=== PATIENT | male | born 1970 | race Caucasian/White ===

== ENCOUNTER 2018-06-04 10:38 | Outpatient (REF) | payer BC, SELFPAY ==
[2018-06-04 12:43] LABS: HCT 43.3 % (40.0-50.0); HGB 14.5 g/dL (13.5-17.5); Mean Corp. HGB Concentration 33.5 g/dL (32.0-36.0); Mean Corpuscular Hemoglobin 32.9 pg (27.0-33.0); Mean Corpuscular Volume 98.2 fL (80-95); Mean Platelet Volume 9.2 fL (8.0-11.0); Platelet Count 308 x1000/uL (130-400); RBC 4.41 m/cumm (4.50-6.00); RBC Distribution Width 12.9 % (11.8-14.1)
[2018-06-04 13:36] LABS: ALT 25 U/L (12-78); AST 18 U/L (15-37); Albumin 4.7 g/dL (3.4-5.0); Alkaline Phosphatase 50 U/L (46-116); Anion Gap 11.5 mmol/L (3-11); BUN 10 mg/dL (7-18); CO2 26.5 mmol/L (21.0-32.0); CREATININE 1.07 mg/dL (0.70-1.30); Calcium 9.2 mg/dL (8.5-10.1); Chloride 101 mmol/L (98-107); Cholesterol 205 mg/dL (50-200); Glucose 104 mg/dL (70-100); HDL Cholesterol 90 mg/dL (40-60); LDL CHOLESTEROL 109 mg/dL (<100); Potassium 4.5 mmol/L (3.5-5.1); Sodium 139 mmol/L (136-145); Total Protein 7.7 g/dL (6.4-8.2); Triglyceride 36 mg/dL (30-150)
[2018-06-05 08:58] LABS: PSA, Screening 0.5 ng/ml (0-2.5)
== END 2018-06-04 10:58 ==
LOC: NCHCN 10:38
PROVIDERS: Nurse Practitioner Family; PCP Family Medicine; Visit Provider Family Medicine
DX: Z00.00 Encounter for general adult medical examination without abnormal findings (principal); Z13.228 Encounter for screening for other metabolic disorders; Z13.220 Encounter for screening for lipoid disorders; Z12.5 Encounter for screening for malignant neoplasm of prostate
CPT/HCPCS: 80053; 80061; 83721; 84153; 85027

== ENCOUNTER 2018-06-11 18:00 | Outpatient (REF) | payer BC, SELFPAY | END 2018-06-11 18:20 | LOC: NCHCN 18:00 | PROVIDERS: PCP Family Medicine; Visit Provider Nurse Practitioner Family | DX: Z00.00 Encounter for general adult medical examination without abnormal findings (principal); R10.9 Unspecified abdominal pain; R73.01 Impaired fasting glucose; N50.811 Right testicular pain; K40.90 Unilateral inguinal hernia, without obstruction or gangrene, not specified as recurrent | CPT/HCPCS: 87086 ==

== ENCOUNTER 2018-06-13 08:45 | Outpatient (CLI) | payer BC, SELFPAY ==
--- NOTE | 2018-06-13 08:59 | DI.US_ITS ---
SYMPTOMS/DIAGNOSIS: RIGHT TESTICULAR PAIN, N50.811, INGUINAL HERNIA, K40.90 TESTICULAR ULTRASOUND: Routine examination was performed. No priors. The right testicle measures 4.6 x 2.8 x 2.1 cm. It is homogeneous with normal blood flow. No intratesticular mass or torsion is evident. The right epididymis shows small epididymal head cysts, the largest measures 0.6 cm. There is normal blood flow to the epididymis. The left testicle measures 3.9 x 2.8 x 2.1 cm. It is homogeneous in echogenicity with normal blood flow. No intratesticular mass or torsion is evident. The left epididymis is unremarkable with a small 0.3 cm epididymal head cyst. There does appear to be a small left hydrocele. IMPRESSION: 1. No evidence of a testicular mass or torsion. 2. Small left hydrocele.
--- NOTE | 2018-06-13 10:17 | DI.CT_ITS ---
SYMPTOMS/DIAGNOSIS: RIGHT FLANK PAIN, BILATERAL ABDOMINAL PAIN, R10.9 CT SCAN OF THE ABDOMEN AND PELVIS: CT abdomen and pelvis was performed according to the renal colic protocol. There are no priors for comparison. The visualized lung bases are clear. The lack of IV contrast does limit evaluation of the abdominal organs. The unenhanced visualized portions of the liver, spleen, pancreas and adrenal glands are unremarkable. There are stones seen within the gallbladder. No biliary ductal dilatation is present. The kidneys show no evidence of nephrolithiasis, ureterolithiasis or obstruction. The urinary bladder is intact. The reproductive organs are unremarkable. The abdominal aorta is of normal caliber with mild atherosclerosis. No aneurysmal dilatation is seen. No significant abdominal or pelvic adenopathy, ascites or pneumoperitoneum is present. There is a moderate amount of stool throughout the colon. No evidence of bowel obstruction or inflammation is present. There is a normal appendix present in the right lower quadrant of the abdomen. Degenerative changes are seen in the spine, particularly at the L4-5 and L5-S1 levels. There does appear to be a small herniated disc centrally at L5-S1. IMPRESSION: 1. No evidence of nephrolithiasis or obstructive uropathy. 2. Cholelithiasis. No biliary ductal dilatation.
== END 2018-06-13 09:05 ==
PROVIDERS: PCP Family Medicine; Visit Provider Nurse Practitioner Family
DX: N50.811 Right testicular pain (principal); N43.3 Hydrocele, unspecified; K40.90 Unilateral inguinal hernia, without obstruction or gangrene, not specified as recurrent; R10.9 Unspecified abdominal pain; K80.20 Calculus of gallbladder without cholecystitis without obstruction
CPT/HCPCS: 74176; 76870

== ENCOUNTER 2018-06-15 13:35 | Outpatient (CLI) | payer BC, SELFPAY ==
--- NOTE | 2018-06-15 13:29 | DI.US_ITS ---
SYMPTOMS/DIAGNOSIS: MID BACK PAIN, BLOATING, GALLSTONES, UPPER ABDOMINAL PAIN, R10.10 ABDOMINAL ULTRASOUND: Comparison is made with CT of the abdomen and pelvis dated June,. A single gallstone is seen, which is mobile. There is no gallbladder thickening or abnormal gallbladder distention. No biliary dilatation is seen. The liver is normal in size and echogenicity. No liver lesions are seen. There is no evidence of ascites. The kidneys, spleen and visualized portions of the aorta are unremarkable. The pancreas was obscured by bowel gas. IMPRESSION: A single mobile gallstone. No evidence of acute cholecystitis.
== END 2018-06-15 13:55 ==
PROVIDERS: PCP Family Medicine; Visit Provider Surgery
DX: M54.89 Other dorsalgia (principal); R14.0 Abdominal distension (gaseous); K80.70 Calculus of gallbladder and bile duct without cholecystitis without obstruction; R10.10 Upper abdominal pain, unspecified
CPT/HCPCS: 76700

== ENCOUNTER 2018-07-05 20:14 | Observation (INO) | payer BC, SELFPAY ==
[2018-07-02 14:31] VITALS: BP 114/79; PULSE 71; RESP 16; TEMP 35.6; O2SAT 100
[2018-07-05] VITALS (14 sets, daily range): BP systolic 78–132; BP diastolic 42–75; PULSE 63–85; RESP 12–18; TEMP 35.7–37; O2SAT 93–100
--- NOTE | 2018-07-05 06:45 | PDOC.DSDIS_ITS ---
Discharge Plan Disposition Patient Disposition: HOME Condition: Good Discharge Details Reason For Visit: BILIARY COLIC / RIH Attending Provider: Jimena López Primary Care Provider: Yoselyn Fuentes Home Meds and New Rx's Prescriptions: New acetaminophen [Tylenol Arthritis Pain] 650 mg tablet extended release 650 mg PO Q6H PRN PRN (Reason: pain) Qty: 30 RF: 0 acetaminophen-codeine 300-30 mg tablet 1 tab PO Q6H PRN (Reason: pain (scale score 7-10)) Qty: 14 RF: 0 Continue naproxen sodium [Aleve] 220 MG capsule 440 mg PO PRN PRNRF: 0 loratadine [Claritin] 10 mg Tablet 10 mg PO DAILY RF: 0 polyethylene glycol 3350 [Miralax] 17 gram Powder In Packet 17 g PO BID RF: 0 Changed ibuprofen [Advil] 200 mg tablet 600 mg PO QID PRN (Reason: pain) Qty: 30 RF: 0 Discharge Instructions Instructions: Laparoscopic Cholecystectomy (DC) Additional Instructions: Follow up: 07/20/18 2 2:15 pm Medications: Tylenol 650 mg every 6 hours as needed Ibuprofen 600 mg every 6 hours as needed (may alternate with Tylenol. Example take Tylenol and 3 hours later may take ibuprofen) Tylenol #3, 1 tab every 6 hours as needed for severe pain. Do not take extra Tylenol if you take the Tylenol with codeine. Miralax 17 gm daily as needed for constipation Other: May shower tomorrow Do not soak incision for 1 week May use ice and/or heat to help with pain, swelling and bruising Walk around at least 4-5 times per day. Diet: Low fat for 2 weeks 1. Because there will be medication in your system for the next 24 hours, you may feel a little sleepy. Your coordination will be affected. Therefore: a. Do not drive or operate dangerous equipment for 24 hours. b. Do not drink alcohol beverages for 24 hours (not even beer). c. Plan to go home and rest for the day. 2. Generally the only restriction on your activity is no lifting, pulling or pushing more then 20 lb for 4 weeks. You may feel fatigued for 2-4 weeks. 3 After you arrive home you may have a light meal and return to a normal diet as you can tolerate it without feeling sick to your stomach. 4. After surgery, you may feel pain or discomfort. Take the medications as prescribed. 5. If there are any questions regarding the findings of your procedure, please feel free to contact your doctor. 6. If you are unable to contact your doctor with a problem, contact the hospital at [phone]. 7. Continue all your regular medications unless directed otherwise. 8. You are being prescribed a Narcotic pain medication. Narcotic pain medications have an addiction potential for everyone. It is important that you take the medication as prescribed There is a limit on how many tablets we can prescribed, this has been decided by the state Please keep the medications in a secure place and do not let anyone know you have them at home If you have medication left over please discard them by crushing them in a little water and mixing in used coffee grounds or cat litter and putting in the trash. I understand the above instructions and have no questions. Signature of Patient or Responsible Adult Escort Date/Time Name of Responsible Adult Escort Signature of Nurse Date/Time Stand Alone Forms: Anes.Nerve Block Instructions, DSU Post op Instructions, Richelle Paredes (DSU) Referrals: Jimena López MD [ [facility] STAFF PHYSICIAN] - 07/20/18 2:15 pm Activity:: No lifting, pulling or pushing >20 lb x 2 weeks Diet:: low fat diet x 2 weeks Discharge Orders Discharge Orders: Discharge Order (Routine); Ordered 07/05/18 Ordered By: Jimena López DS: Diagnosis Discharge Diagnosis (1) Biliary colic symptom: Status: Acute (2) S/P laparoscopic cholecystectomy: Status: Acute
[2018-07-05] MEDS: Lactated Ringers 1,000 ML 80 ML IV ×3 (09:45→20:00)
[2018-07-05] MEDS: AMPICILLIN/SULBACTAM 3 GM in Normal Saline 100 ML IVPB (12:30)
--- NOTE | 2018-07-05 13:42 | GB_PTH ---
PATIENT: Demetrio Sierra LOC: U#:[id number] AGE/SX: 48/M ROOM: 216 RE07/05/[address]: Galen Bauer : 1970 BED: A DIS: 07/06/2018 SPEC #: [id number] RECD: 07/05/18 17:49 STATUS: MICHELLE REQ #: [id number] LISSETH: 07/05/18 13:[address]: Jimena López DEPT: Surgical Specimen RECD BY: Virginia Hamilton ENTERED: 07/05/18 17:50 SP TYPE: GB OTHR DR: Yoselyn Fuentes Tissues: 1 - GALLBLADDER Procedures: GROSS AND MICRO LEVEL 3 Comments: [id number]
[2018-07-05] MEDS: Bupivacaine 0.25% Pres-Free 30 ML VIAL (13:50)
--- NOTE | 2018-07-05 16:12 | ROE_ITS ---
DATE OF PROCEDURE: July 05, 2018 PREOPERATIVE DIAGNOSIS: #1. Biliary colic. #2. Right inguinal hernia. POSTOPERATIVE DIAGNOSIS: Biliary colic. PROCEDURE: Laparoscopic cholecystectomy. SURGEON: Jimena López M.D. LINDERMAN OPERATOR: Helga Baum PA-C ANESTHESIA: General endotracheal anesthesia and scalene block. ASA I. ANESTHESIA PROVIDER: Jr Calles CRNA BLOOD LOSS: 50 cc SPECIMENS: Gallbladder and contents. COMPLICATIONS: No immediate complications. FINDINGS: Distended gallbladder with bile and small stones. No right or left inguinal hernia visual ized. INDICATIONS: Mr. Sierra is a 48-year-old gentleman who was seen in the office with intermittent righ t upper quadrant pain, better if he did not eat any fatty foods. The pain radiated to his back. He also complained of right inguinal pain. On exam it felt like he had a right inguinal hernia and ? sm all left inguinal hernia. The risks, benefits, and complications of laparoscopic cholecystectomy and open right inguinal repair were reviewed with him and he wished to proceed. No guarantees were gi merline or implied. PROCEDURE: After informed consent was obtained, the patient was taken to the Operating Room and plac ed in a supine position. SCDs were applied as well as monitors. He was then placed under general an esthesia and intubated without difficulty. Once intubated he was placed in a left decubitus position and the block was done by Anesthesia under ultrasound guidance. The patient was then placed back on to his back and his abdomen was prepped and draped in a sterile surgical fashion. A Clemente catheter w as placed in the standard fashion prior to prepping and draping his abdomen. One percent lidocaine w as then injected just above his umbilicus. A small 5-mm incision was made and a 5-mm port was placed under direct visualization into the abdomen. The abdomen was insufflated and three more ports were placed. An 11-mm port was placed in the subxiphoid area and two 5-mm ports were placed in the right upper quadrant. The bowel under the umbilical port was inspected and no injuries were identified. The gallbladder was then identified and grasped. The gallbladder was tented towards the right should er, allowing me to visualize the neck of the gallbladder. This was grasped with a second grasper and then using a [place] dissector the cystic duct and artery were dissected 360 degrees. I was able t o see the liver bed behind them, and then three clips were placed from proximal to distal on both the duct and artery, and they were both cut. The gallbladder was then removed from the liver bed using cautery. I did have a hole in the gallbladder so some of the bile leaked out as well as some small s tones which were suctioned out. Once the gallbladder was removed, it was placed into an EndoCatch ba g and removed through the 11-mm port without difficulty. The port was replaced and 1500 cc of normal saline were used to irrigate the abdomen. At the end the effluent was clear. The rest of the local anesthetic was then injected above the liver bed to help with postoperative shoulder pain. The left and right groin were then inspected and no hernias, either direct or indirect, were identifi ed. The 11-mm port and the two right upper quadrant ports were then removed. No bleeding was noted from the fascia. Lastly, the camera was removed and the 5-mm port at the umbilical site. The abdome n was deflated. The skin was cleaned and dried. The dermis was reapproximated with #4-0 Vicryl and Steri-Strips and Mastisol were applied as well as dry dressings. Sponge, instrument, and needle counts were correct at the end of the case x2. At this point the patient was woken up, extubated, and taken back to Recovery in stable condition.
[2018-07-05 19:07] LABS: HCT 39.9 % (40.0-50.0); HGB 13.6 g/dL (13.5-17.5); Mean Corp. HGB Concentration 34.1 g/dL (32.0-36.0); Mean Corpuscular Hemoglobin 33.4 pg (27.0-33.0); Mean Platelet Volume 8.8 fL (8.0-11.0); Platelet Count 265 x1000/uL (130-400); RBC 4.07 m/cumm (4.50-6.00); RBC Distribution Width 12.9 % (11.8-14.1); White Blood Cell Count 7.12 k/cumm (4.4-10.8)
[2018-07-05] MEDS: Ketorolac 30 MG/ML VIAL IVP (19:36)
[2018-07-05] MEDS: ACETAMINOPHEN 1,000 MG/100 ML BTL 400 MG IVPB (19:37)
--- NOTE | 2018-07-05 20:24 | W.PM.PROGNOT ---
Assessment and Plan (1) S/P laparoscopic cholecystectomy: Current visit: Yes Status: Acute Will admit for overnight observation. IVF. PO as tolerated. Toradol and Tylenol # 3 prn pain. Encouraged incentive spirometer use and up with assist as tolerated to help with CO2 re-absorption. Will re-eval in am for possible discharge. All questions answered. Patient agreeable with plan. Subjective Patient reports: still having pain Interval history since last seen: Patient seen in Outpatient Day Surgery Unit. Patient underwent a laparoscopic cholecystectomy this afternoon with Dr. Castro. He had an erector spinae block for surgery by anesthesia. He was evaluated intraoperatively for possible inguinal hernias. No hernia identified. Postoperatively, patient was not able to be discharged due to weakness, lightheadness, and diaphoresis upon getting up. He c/o pain under his rib cage to back consistent with CO2 insufflation - 01/06. He took in ~ 480 cc po and tolerated toast. He has voided. He denies nausea or vomiting but notes feeling weak. No orthostatic hypotension. CBC obtained postop stable with H/H of 13.6/39.9. Exam Const General: cooperative and no acute distress Nutritional Appearance: well nourished Orientation: alert and oriented x3 Resp Effort & Inspection: normal respiratory effort and able to speak in complete sentences Cardio Jugular venous pressure: no JVD Rate: regular rate GI Inspection: non-distended and incision (dressings intact, serosanguinous drainage on epigastric site dressing) Palpation: soft, not firm, no guarding, no masses, not rigid and tender (mild tenderness - as expected - by incisions) Skin General skin exam: no rashes or lesions noted and no jaundice Objective Objective Clinical Data: Abnormal lab results 07/05/18 Range/Units 18:58 RBC 4.07 L (4.50-6.00) m/cumm Hct 39.9 L (40.0-50.0) % MCV 98.0 H (80-95) fL MCH 33.4 H (27.0-33.0) pg Vital Signs Temperature 35.8 C L 07/05/18 16:40 Pulse 65 07/05/18 16:40 Pulse Rhythm Regular 07/02/18 14:31 Respiratory Rate 18 07/05/18 16:40 Respiratory Depth Normal 07/02/18 14:31 Blood Pressure 78/42 L 07/05/18 16:40 Pulse Oximetry 100 07/05/18 16:40 Respiratory End-tidal CO2 32 07/05/18 15:13 Oxygen Delivery Method Room Air 07/05/18 16:40 Oxygen Flow Rate 0 07/05/18 15:13 Pain Level 5 07/05/18 16:05 Intake & Output 07/04/18 07/05/18 07/05/18 23:59 11:59 23:59 Intake Total 213 / 2129 Output Total 250 / 250 Balance 1879 Intake: IV 1949 Oral 180 / 180 Output: Urine 200 / 200 Estimated Blood Loss 50 / 50 Other: Urine Color Yellow Urine Appearance Clear Emesis Description None Laboratory Results WBC 7.12 k/cumm (4.4-10.8) 07/05/18 18:58 RBC 4.07 m/cumm (4.50-6.00) L 07/05/18 18:58 Hgb 13.6 g/dL (13.5-17.5) 07/05/18 18:58 Hct 39.9 % (40.0-50.0) L 07/05/18 18:58 MCV 98.0 fL (80-95) H 07/05/18 18:58 MCH 33.4 pg (27.0-33.0) H 07/05/18 18:58 MCHC 34.1 g/dL (32.0-36.0) 07/05/18 18:58 RDW 12.9 % (11.8-14.1) 07/05/18 18:58 Plt Count 265 x1000/uL (130-400) 07/05/18 18:58 MPV 8.8 fL (8.0-11.0) 07/05/18 18:58
[2018-07-06 00:08] VITALS: BP 110/63; PULSE 69; RESP 16; TEMP 36.2; O2SAT 98
[2018-07-06] MEDS: Ketorolac 30 MG/ML VIAL IVP ×2 (02:14→08:33)
[2018-07-06 03:29] VITALS: BP 101/55; PULSE 68; RESP 18; TEMP 36.7; O2SAT 97
[2018-07-06 07:20] VITALS: BP 100/60; PULSE 79; RESP 18; TEMP 36.7; O2SAT 100
--- NOTE | 2018-07-06 08:18 | PHARADMIT ---
Admission Pharmacy Clinical Review BILARY COLIC Code Status Full Code Current Weight Wgt-79 kg Renally Cleared and Narrow Therapeutic Index Meds CrCl~ 94 mL/min Meds-OK QTc Value / Action Taken NA BP Control, Fever BP-101/55 Tmax--37.0C Electrolytes reviewed na DVT Prophylaxis No Opiate Usage / Scheduled Bowel Regimen Ordered Yes No Plt/SCr for Heparin / Enoxaparin Plts-265 SCr-1.07 INR for Warfarin na H/H stable, WBC/Bands H&H-13.6/39.9 WBC-7.12 Antibiotic appropriateness Unasyn Cultures and Sensitivities none Surgical ABX d/c within 24 hr na DM control / Insulin Dosing na Heart Failure (Check EF%) (KAL's, B-Block, Diuretics) none IV to PO Switch No Home Meds Reviewed Yes Home Meds Not Ordered Ibuprofen, Naproxen, Miralax Comments
[2018-07-06] MEDS: Normal Saline Flush 10 ML SYR IVP (08:33)
[2018-07-06 09:35] VITALS: O2SAT 99
--- NOTE | 2018-07-06 10:27 | W.PM.DS.N ---
Date of service: 07/06/18 Time of Service: 10:28 DS: Diagnosis Discharge Diagnosis (1) S/P laparoscopic cholecystectomy: Status: Acute Discharge Plan Disposition Patient Disposition: HOME Condition: Good Discharge Details Reason For Visit: BILIARY COLIC / RIH Admit Date/Time: 07/05/18 20:14 Admit Provider: Galen Bauer Attending Provider: Galen Bauer Primary Care Provider: Yoselyn Fuentes [place] [facility] Hospital Course: 48 y/o male who underwent a laparoscopic cholecystectomy on 07/05/18. Postoperatively, he c/o lightheadedness and feeling faint on getting up. Orthostatics were checked. No orthostatic hypotension noted. CBC checked and H/H was stable postoperatively. Patient also c/o significant back pain and pain under the ribs last night presumably attributable to CO2 insufflation. Patient was admitted for overnight observation and IVF for dehydration. Patient notes that he had worked extensively the day prior to surgery without eating/drinking much and had fasted for surgery. On 07/06/18, he notes that his back pain is significantly improved. He is tolerating a regular diet without nausea or vomiting. He is voiding. SBP 100-110s. Last check - 117/75. He notes that his SBP usually runs in the 110s. Patient feels well and ready for discharge. Discharge instructions per Dr. López's orders from 07/05/18. Rx for Tylenol Arthritis Pain and Tylenol # 3 e-scribed 07/05/18. Home Meds and New Rx's Prescriptions: New acetaminophen [Tylenol Arthritis Pain] 650 mg tablet extended release 650 mg PO Q6H PRN PRN (Reason: pain) Qty: 30 RF: 0 acetaminophen-codeine 300-30 mg tablet 1 tab PO Q6H PRN (Reason: pain (scale score 7-10)) Qty: 14 RF: 0 Continue naproxen sodium [Aleve] 220 MG capsule 440 mg PO PRN PRNRF: 0 loratadine [Claritin] 10 mg Tablet 10 mg PO DAILY RF: 0 polyethylene glycol 3350 [Miralax] 17 gram Powder In Packet 17 g PO BID RF: 0 Changed ibuprofen [Advil] 200 mg tablet 600 mg PO QID PRN (Reason: pain) Qty: 30 RF: 0 Discharge Instructions Instructions: Laparoscopic Cholecystectomy (DC) Additional Instructions: Follow up: 07/20/18 2 2:15 pm Medications: Tylenol 650 mg every 6 hours as needed Ibuprofen 600 mg every 6 hours as needed (may alternate with Tylenol. Example take Tylenol and 3 hours later may take ibuprofen) Tylenol #3, 1 tab every 6 hours as needed for severe pain. Do not take extra Tylenol if you take the Tylenol with codeine. Miralax 17 gm daily as needed for constipation Other: May shower tomorrow Do not soak incision for 1 week May use ice and/or heat to help with pain, swelling and bruising Walk around at least 4-5 times per day. Diet: Low fat for 2 weeks 1. Because there will be medication in your system for the next 24 hours, you may feel a little sleepy. Your coordination will be affected. Therefore: a. Do not drive or operate dangerous equipment for 24 hours. b. Do not drink alcohol beverages for 24 hours (not even beer). c. Plan to go home and rest for the day. 2. Generally the only restriction on your activity is no lifting, pulling or pushing more then 20 lb for 4 weeks. You may feel fatigued for 2-4 weeks. 3 After you arrive home you may have a light meal and return to a normal diet as you can tolerate it without feeling sick to your stomach. 4. After surgery, you may feel pain or discomfort. Take the medications as prescribed. 5. If there are any questions regarding the findings of your procedure, please feel free to contact your doctor. 6. If you are unable to contact your doctor with a problem, contact the hospital at [phone]. 7. Continue all your regular medications unless directed otherwise. 8. You are being prescribed a Narcotic pain medication. Narcotic pain medications have an addiction potential for everyone. It is important that you take the medication as prescribed There is a limit on how many tablets we can prescribed, this has been decided by the state Please keep the medications in a secure place and do not let anyone know you have them at home If you have medication left over please discard them by crushing them in a little water and mixing in used coffee grounds or cat litter and putting in the trash. I understand the above instructions and have no questions. Signature of Patient or Responsible Adult Escort Date/Time Name of Responsible Adult Escort Signature of Nurse Date/Time Stand Alone Forms: Anes.Nerve Block Instructions, DSU Post op Instructions, Richelle Paredes (DSU) Referrals: Jimena López MD [ [facility] STAFF PHYSICIAN] - 07/20/18 2:15 pm Activity:: No lifting, pulling or pushing >20 lb x 2 weeks Activity:: Activity as Tolerated Equipment/Supplies:: No Equipment Needed Diet:: low fat diet x 2 weeks Discharge Orders Discharge Orders: Discharge Order (Routine); Ordered 07/05/18 Ordered By: Jimena López Exam Const General: cooperative, healthy appearing, comfortable and no acute distress Resp Effort & Inspection: normal respiratory effort and able to speak in complete sentences Cardio Jugular venous pressure: no JVD Rhythm: regular rhythm GI Inspection: non-distended and incision (dressings dry and intact, dried serosanguinous drainage on epigastric dressing) Palpation: soft, not firm, no guarding, no masses and nontender Skin General skin exam: no rashes or lesions noted and no jaundice Neuro General: alert and oriented x3 DS: Data Vitals/I&O Vitals and I&O: Vital Signs Temperature 36.7 C 07/06/18 07:20 Temperature Source Tympanic 07/06/18 07:20 Pulse 79 07/06/18 07:20 Pulse Rhythm Regular 07/06/18 08:15 Respiratory Rate 18 07/06/18 07:20 Respiratory Effort 11/02/18 08:15 Respiratory Depth Normal 07/06/18 08:15 Respiratory Pattern Normal 07/06/18 08:15 Blood Pressure 100/60 07/06/18 07:20 Pulse Oximetry 100 07/06/18 07:20 Respiratory End-tidal CO2 32 07/05/18 15:13 Oxygen Delivery Method Room Air 07/06/18 07:20 Oxygen Flow Rate 0 07/06/18 07:20 Pain Level 3 07/06/18 07:20 Intake & Output 07/05/18 07/05/18 07/06/18 11:59 23:59 11:59 Intake Total 2190 / 2190 1560 / 1560 Output Total 1050 / 1050 Balance 1140 / 1140 1560 / 1560 Weight 79 kg Intake: IV 1950 / 1950 700 / 700 Oral 240 / 240 860 / 860 Output: Urine 1000 / 1000 Estimated Blood Loss 50 / 50 Other: Urine Color Yellow Urine Appearance Clear Clear Emesis Description None Labs on day of discharge: Labs from last 24 hours 07/05/18 18:58 WBC 7.12 RBC 4.07 L Hgb 13.6 Hct 39.9 L MCV 98.0 H MCH 33.4 H MCHC 34.1 RDW 12.9 Plt Count 265 MPV 8.8
[2018-07-06 10:30] VITALS: BP 117/75
--- NOTE | 2018-07-06 10:46 | CHAPLAIN ---
Demetrio was visiting with his when I stopped in. Demetrio was very pleasant and easily engaged in a conversation. They moved to [place] from [place] and are enjoying living in [place]. They are [employer], but there are not any [employer] churches in the [facility]. Demetrio said he is being discharged soon.
== END 2018-07-06 12:14 | disposition home or self-care (01) ==
LOC: MS 20:27
PROVIDERS: Nurse Anesthetist, Certified Registered; Surgery; Admitting Provider Surgery; PCP Family Medicine; Visit Provider Surgery
PROC: 0FT44ZZ Resection of Gallbladder, Percutaneous Endoscopic Approach (ICD-10-PCS; CPT 47562; principal; 2018-07-05 10:30)
DX: K80.20 Calculus of gallbladder without cholecystitis without obstruction (principal)
CPT/HCPCS: 47562; 85027; NC; 88304; G0378; J0131; J0295; J1100; J1885; J2250; J2405; J3010

== ENCOUNTER 2020-08-24 21:03 | Outpatient (REF) | payer BC, SELFPAY ==
[2020-08-27 00:41] LABS: COVID-19 RT-PCR Result NEGATIVE (Negative)
== END 2020-08-24 21:23 ==
LOC: NCHCN 21:03
PROVIDERS: PCP Family Medicine; Visit Provider Family Medicine
DX: Z20.828 Contact with and (suspected) exposure to other viral communicable diseases (principal)
CPT/HCPCS: U0003

== ENCOUNTER 2025-01-10 16:32 | Outpatient (REF) | payer BC, SELFPAY | END 2025-01-10 16:33 | disposition home or self-care (01) | LOC: LBN 16:32 | PROVIDERS: PCP Family Medicine; Visit Provider Physical Therapy Assistant | DX: L72.8 Other follicular cysts of the skin and subcutaneous tissue (principal) | CPT/HCPCS: 87077; 87070; 87186; 87205 ==

== ENCOUNTER 2025-01-30 13:28 | Day surgery (SDC) | payer BC, SELFPAY ==
[2025-01-30 13:47] VITALS: BP 130/81; PULSE 79; RESP 18; TEMP 36.4; O2SAT 79
[2025-01-30] MEDS: Lactated Ringers 1,000 ML 80 ML IV (14:15)
--- NOTE | 2025-01-30 14:36 | W.ANESPRE ---
General Info Date of Service Date Performed: 01/30/25 Height: 6 ft Weight: 90.8 kg Body Mass Index (BMI): 27.1 Surgical Procedure: Operation Date: 01/30/25 14:25 Proposed Procedure Side Surgeon p Lower Extremity Wound Debridemint Right Wisam Carr MD Meds Allergies and Home Medications Allergies Allergy/AdvReac Type Severity Reaction Status Date / Time pseudoephedrine AdvReac Other (See Verified 01/30/25 13:46 Comment) Home Medication ?Medication ?Instructions ?Recorded naproxen sodium 220 mg capsule 440 mg PO PRN PRN 08/30/17 (Aleve) loratadine 10 mg tablet (Claritin) 10 mg PO DAILY 07/02/18 ciprofloxacin HCl 750 mg tablet 750 mg PO Q12H #30 tabs 01/29/25 Current Visit Medications: Current Medications Generic Name Dose Route Start Last Admin Trade Name Freq PRN Reason Stop Dose Admin Ringer's Solution 1,000 mls @ 80 mls/hr 01/30/25 06:00 01/30/25 14:15 IV 01/30/25 23:59 80 mls/hr INFUSION KAVITHA Administration IV Miscellaneous Supplies 1 each 01/30/25 06:00 Iv Access IV 01/30/25 23:59 DIRECTED KAVITHA Sodium Chloride 0 ml 01/30/25 06:00 Normal Saline Flush 10 Ml Syr IV 01/30/25 23:59 PRN PRN Sodium Chloride 0 ml 01/30/25 06:00 Normal Saline 10 Ml Vial IJ 01/30/25 23:59 DIRECTED PRN Sterile Water 0 ml 01/30/25 06:00 Water,Injection,Sterile 10 Ml Vial IJ 01/30/25 23:59 DIRECTED PRN PFSH Active Problems Active Problems: Problem Status Onset Code Pseudomonas aeruginosa colonization Acute Z22.39 Follicular cyst of skin and subcutaneous tissue Acute L72.9 Sebaceous cyst Acute L72.3 Lipoma of extremity Acute D17.79 Medical History Medical History Biliary colic symptom Left hydrocele Gallstones Urinary frequency Low back pain Left knee pain Impaired fasting glucose Testicular pain Right inguinal hernia Surgical History Surgical History (Updated 01/29/25 @ 14:24 by Patrick Gomez) History of left knee surgery S/P laparoscopic cholecystectomy Tobacco Smoking/Tobacco Use Status: Never Passive smoking exposure: No Alcohol Alcohol Intake: current Alcohol intake frequency: holidays/special occasions only Substance Use Substance use: Never Substance use type: does not use Vital Signs and Lab Results Vital Signs Most Recent Vital Signs in EMR: Most Recent Vital Signs Temp Pulse Resp BP Pulse Ox 36.4 C L 79 18 130/81 79 L 01/30/25 13:47 01/30/25 13:47 01/30/25 13:47 01/30/25 13:47 01/30/25 13:47 Lab Results Blood Type / Crossmatch: No Data to Display Complete Blood Count: No Data to Display Complete Metabolic Panel: No Data to Display Liver Function Panel: No Data to Display Coagulation Panel: No Data to Display Cardiac Panel: No Data to Display Arterial Blood Gas: No Data to Display Venous Blood Gas: No Data to Display Pancreas Panel: No Data to Display Thyroid Panel: No Data to Display Infectious Disease: No Data to Display Blood Cultures: No Data to Display Toxicology Panel: No Data to Display Anesthesia Assessment and Plan Anesthesia History Personal History: No History of Anesthesia Complications Family History: No Family History of Anesthesia Complications Exercise Tolerance Exercise Tolerance: Metabolic Equivalents>4 Pertinent Negatives Pertinent Negatives: No Symptoms of GERD Cardiac & Pulmonary Exam Cardiac Exam: Normal S1/S2 Heart Sounds Pulmonary Exam: Clear Bilateral Breath Sounds Implantable Cardiac Device Does patient have a Pacemaker or an ICD?: No Airway Exam Known Difficult Airway: No Mallampati Class: 2 Mouth Opening: Normal (> 3cm) Thyromental Distance: Greater than 3 cm Neck Range of Motion: Full ROM Neck Circumference: Normal Teeth Condition: Normal Dentition ASA Classification ASA Score: ASA 2 Emergency Case?: No NPO Status NPO Status: NPO Clears >2 hours, Solids >8 hours Anesthesia Plan Resuscitation Status: Full Code Anesthesia Technique: General Anesthesia Airway Planned: Natural Airway Pain Management: Surgeon and patient request nerve block (As rescue) Monitors Used: Standard Monitors
[2025-01-30 14:37] VITALS: BMI 27.1
[2025-01-30] MEDS: Bupivacaine 0.25% Pres-Free 30 ML VIAL (15:00)
[2025-01-30 15:15] VITALS: BP 119/73; PULSE 68; RESP 16; TEMP 36.2; O2SAT 97
--- NOTE | 2025-01-30 15:15 | ROE_ITS ---
Operative Note Operative Note Refer to Anesthesia Record Procedure Description: Procedures performed: 1. Surgical wound debridement of right lower extremity wound (2 x1 x1 cm) Pre-op diagnosis: Pseudomonas wound infection Postop diagnosis: Same Surgeon: Cheryl Carr MD Anesthesia: MAC Indication: 54-year-old man had a cyst excised from his leg in the office a few weeks ago. He has developed wound infection which is growing Pseudomonas and not improving in any way. I recommended surgical debridement down to fresh, healthy tissue. Specimen: No specimens - but, cultures were sent Blood loss: Minimal Complications: None Procedure in detail: The patient gave written consent after discussing the risks, benefits and the indication for the procedure. The site was prepped and draped in sterile fashion. We performed a timeout and when we were all in agre ement we began the procedure. Local anesthetic was injected which the patient tolerated very well. Using a combination of scalpel and electrocautery, I sharply incised the perimeter of the wound cavity. I then excised this tissue. Using a curette, I scraped the entire, remaining wound cavity down to healthy, bleeding tissue. Everything was viable, bleeding and non-inflamed, non-irritated and no fibrinous tissue anywhere. Next, use electrocautery to ablate all of the wound cavity tissue bases and controlled any bleeding and hemostasis was excellent. I was satisfied that our wound base was completely fresh and that all the Pseudomonas?infected tissue had been excised grossly. Hemostasis was excellent and I packed the cavity with gauze. A dry, absorbing, sterile dressing were placed over top of the wound. The patient tolerated the procedure well and taken to the day surgery recovery unit. Date of Procedure: 01/30/25
--- NOTE | 2025-01-30 15:16 | W.PM.DSUDISC ---
Date of service: 01/30/25 Discharge Plan Disposition Patient Disposition: Home Condition: Good Discharge Details Attending Provider: Wisam Carr Primary Care Provider: Yoselyn Fuentes Home Meds and New Rx's Prescriptions: No Action ciprofloxacin HCl 750 mg tablet 750 mg PO Q12H Qty: 30 0RF naproxen sodium [Aleve] 220 MG capsule 440 mg PO PRN PRN loratadine [Claritin] 10 mg Tablet 10 mg PO DAILY Discharge Instructions Additional Instructions: FINDINGS: Everything went well. The entire wound cavity was cleaned out completely. Leave the dressing and bandage on today and tomorrow. Remove the dressing and the packing tomorrow and resume putting DRY gauze into it 3 times a day. Resume your regular diet. Resume regular activity as tolerated. Keep taking your antibiotics. Call us if anything is getting worse or if you get fevers. You are welcome to come see us in follow-up at any point in time however if it is getting better and going away, you can call us to be seen as needed. Activity:: Activity as Tolerated Remove Dressings/Wound Care:: 24 hours Diet:: As Tolerated
--- NOTE | 2025-01-30 15:41 | W.ANESPOSTOP ---
Postoperative Evaluation Date, Time and Location Date Performed: 01/30/25 Time Performed: 15:17 Patient Location: Day Surgery Unit Vital Signs Most Recent Imported Vital Signs: Most Recent Vital Signs Temp Pulse Resp BP Pulse Ox 36.2 C L 68 16 119/73 97 01/30/25 15:15 01/30/25 15:15 01/30/25 15:15 01/30/25 15:15 01/30/25 15:15 Pain Score Most Recent Pain Score: Most Recent Pain Score Pain Level 0 01/30/25 15:15 Assessment Mental Status: Awake (Alert & Oriented to Patient Baseline) Airway and Respiratory Function: Patent airway with normal (patient baseline) respiratory exam Cardiovascular Function: Hemodynamically Stable Hydration Status: Adequately Hydrated Nausea & Vomiting: No Nausea or Vomiting Pain: Pt. Denies Any Pain Peripheral Nerve Block: Patient did not receive a nerve block
[2025-01-30 15:52] VITALS: BP 116/78; PULSE 65; RESP 18; TEMP 36.7; O2SAT 98
[2025-01-30] MEDS: Acetaminophen 500 MG TAB 1000 MG PO (16:16)
[2025-01-30] MEDS: Ketorolac 15 MG/ML VIAL IVP (16:18)
== END 2025-01-30 16:47 | disposition home or self-care (01) ==
PROVIDERS: PCP Family Medicine; Visit Provider Student in an Organized Health Care Education/Training Program
PROC: (CPT 97597; principal; 2025-01-30 14:15)
DX: L72.8 Other follicular cysts of the skin and subcutaneous tissue (principal); B96.5 Pseudomonas (aeruginosa) (mallei) (pseudomallei) as the cause of diseases classified elsewhere
CPT/HCPCS: 97597; 87077; 87070; 87186; 87205; J0665; J1100; J1885; J2003; J2250; J2405; J2704; J3010

== ENCOUNTER 2025-07-28 11:12 | Outpatient (REF) | payer BC, SELFPAY ==
[2025-07-28 16:26] LABS: ALT 58 U/L (10-49); AST 35 U/L (<34); Albumin 4.8 g/dL (3.4-5.0); Alkaline Phosphatase 48 U/L (46-116); Anion Gap 9.1 mmol/L (3-11); BUN 15 mg/dL (9-23); Bilirubin, Total 1.00 mg/dL (0.2-1.2); CO2 23.9 mmol/L (20.0-31.0); Calcium 9.6 mg/dL (8.3-10.6); Chloride 105 mmol/L (98-107); Cholesterol 248 mg/dL (<200); Glucose 95 mg/dL (74-106); HDL Cholesterol 88 mg/dL (>40); Potassium 4.6 mmol/L (3.5-5.1); Sodium 138 mmol/L (136-145); Total Protein 7.4 g/dL (5.7-8.2)
== END 2025-07-28 11:13 | disposition home or self-care (01) ==
LOC: NCHCN 11:12
PROVIDERS: PCP Family Medicine; Visit Provider Family Medicine
DX: Z00.00 Encounter for general adult medical examination without abnormal findings (principal)
CPT/HCPCS: 80053; 80061